=== PATIENT | male | born 1975 | race African-American/Black ===

== ENCOUNTER 2021-10-13 17:41 | Emergency (ER) | payer OTHER ==
[2021-10-13 18:13] VITALS: BP 150/84; PULSE 68; TEMP 98.1; BMI 23.7
[2021-10-13] MEDS ORDERED: AMOX TR/POT CLAV 875MG/125MG TABLETS (FP) PO ONE (19:28)
[2021-10-13] MEDS ORDERED: AMOX TR/POT CLAV 875MG/125MG TABLETS (FP) ONE (19:29)
== END 2021-10-13 19:53 | disposition home or self-care (01) ==
LOC: JERFT 17:41
DX: S51.851A Open bite of right forearm, initial encounter (principal); Y04.1XXA Assault by human bite, initial encounter
CPT/HCPCS: 99283-25